=== PATIENT | female | born 1930 | race Caucasian/White ===

== ENCOUNTER → 2016-08-23 | Outpatient (REF) | payer MEDICARE ==
[~2016-08-23] MED LIST: /ESOM40CA OR; ASPI81TA83 OR; AZELASTINE; CARV12.5 OR; DIGO0.126 OR; FLUTICASONE NASAL SP; LASI20TA OR; LIPI10TA OR; MECL25TA2 OR; MULTIVIT PO; NITR0.4S SL; WARF1TAB OR
[2016-08-23 17:06] LABS: ALBUMIN 4.1 GM/DL (3.2-5.2); ALBUMIN/GLOBULIN RATIO 1.37 (1.00-1.93); BILIRUBIN,TOTAL 1.1 MG/DL (0.2-1.0); CALCIUM LEVEL 9.1 MG/DL (8.8-10.2); CREATININE FOR GFR 1.05 MG/DL (0.55-1.02); GLOMERULAR FILTRATION RATE 52.9 (>32); POTASSIUM SERUM 4.5 MEQ/L (3.5-5.1); TOTAL PROTEIN 7.1 GM/DL (6.4-8.2)
[2016-08-23 17:50] LABS: MEAN CORPUSCULAR HEMOGLOBIN 33.9 pg (27.0-33.0); MEAN CORPUSCULAR HGB CONC 32.8 g/dl (32.0-36.5); MEAN CORPUSCULAR VOLUME 103.4 fl (80.0-96.0); RED CELL DISTRIBUTION WIDTH 12.7 % (11.5-14.5); WHITE BLOOD COUNT 5.3 K/mm3 (4.0-10.0)
== END ==
LOC: M SFHCPLAZ 14:06
PROVIDERS: ATTEND Nurse Practitioner Adult Health
DX: I48.2 Chronic atrial fibrillation (principal); I10 Essential (primary) hypertension; E78.00 Pure hypercholesterolemia, unspecified; E55.9 Vitamin D deficiency, unspecified
CPT/HCPCS: 36415; 80053; 80061; 82306; 85027; G0463

== ENCOUNTER → 2016-10-03 | Outpatient (CLI) | payer MEDICARE ==
--- NOTE | 2016-10-03 15:52 | REPMRS ---
Patient History The patient states she had a clinical breast exam in 09/2016. Patient is postmenopausal and has history of other cancer at age 83. No known family history of cancer. Digital Woman Screen Mammo: October 03, 2016 - Exam #: [id number] Bilateral CC and MLO view(s) were taken. Technologist: Sheryl Glez, Technologist Prior study comparison: September 23, 2015, digital woman screen mammo performed at [facility] to [facility]. September 09, 2014, digital woman screen mammo performed at [facility] to [facility]. September 02, 2013, digital woman screen mammo performed at [facility] to [facility]. FINDINGS: There are scattered fibroglandular densities. There is a moderate amount of residual fibroglandular tissue which is fairly symmetric. There is no interval development of dominant mass, architectural distortion, or clustered microcalcification typical of malignancy. There has been no change in the appearance of the mammogram from the prior studies. ASSESSMENT: BI-RADS/ACR category 1 mammogram. Negative. Recommendation Routine screening mammogram of both breasts in 1 year (for women over age 40). This mammogram was interpreted with the aid of an FDA-approved computer-aided dectection system. Electronically Signed By: Anibal Francois MD 10/03/16 [id number]
== END ==
LOC: M WHC 14:37
PROVIDERS: ATTEND Nurse Practitioner Family
DX: Z01.419 Encounter for gynecological examination (general) (routine) without abnormal findings (principal); Z12.31 Encounter for screening mammogram for malignant neoplasm of breast; Z78.0 Asymptomatic menopausal state; Z12.12 Encounter for screening for malignant neoplasm of rectum
CPT/HCPCS: 82270; G0101; G0202

== ENCOUNTER → 2017-03-07 | Outpatient (REF) | payer MEDICARE ==
[2017-03-07 13:46] LABS: MEAN CORPUSCULAR HEMOGLOBIN 33.8 pg (27.0-33.0); MEAN CORPUSCULAR HGB CONC 32.1 g/dl (32.0-36.5); PLATELET COUNT, AUTOMATED 169 10^3/uL (150-450); RED CELL DISTRIBUTION WIDTH 13.2 % (11.5-14.5); WHITE BLOOD COUNT 5.7 10^3/uL (4.0-10.0)
[2017-03-07 13:57] LABS: MEAN CORPUSCULAR VOLUME 105.2 fl (80.0-96.0)
[2017-03-07 14:17] LABS: ALBUMIN 4.4 GM/DL (3.2-5.2); ALBUMIN/GLOBULIN RATIO 1.69 (1.00-1.93); CALCIUM LEVEL 9.2 MG/DL (8.8-10.2); CREATININE FOR GFR 0.94 MG/DL (0.55-1.02); POTASSIUM SERUM 4.6 MEQ/L (3.5-5.1)
== END ==
LOC: M SFHCPLAZ 11:44
PROVIDERS: ATTEND Nurse Practitioner Adult Health
DX: Z00.00 Encounter for general adult medical examination without abnormal findings (principal); E78.2 Mixed hyperlipidemia; E55.9 Vitamin D deficiency, unspecified; Z23 Encounter for immunization
CPT/HCPCS: 80053; 80061; 82306; 84443; 85027; 90662; G0008

== ENCOUNTER → 2017-04-15 | Outpatient (CLI) | payer MEDICARE ==
--- NOTE | 2017-04-15 12:30 | REP ---
Right shoulder series: Three views. History: Right shoulder pain. Findings: There is diffuse osteopenia. The right glenohumeral and acromioclavicular joints are normally aligned. There is moderate osteoarthritic spurring at the inferior aspect of the glenoid. Moderate inferior AC joint spurring is seen as well. Periarticular soft tissues are unremarkable. No fracture or subluxation is seen. Impression: Moderate AC joint and glenohumeral joint osteoarthritis. Diffuse osteoporosis. No acute bony abnormality seen. Signed by Jamarcus Francois MD 04/15/2017 12:32 P
--- NOTE | 2017-04-15 12:32 | REP ---
Chest x-ray: Two views. History: Cough for several weeks. Comparison: Chest x-ray February 17, 2014. Findings: There is marked cardiac enlargement again noted, unchanged from multiple prior radiographs. The right heart border particularly prominent as before. The aorta is tortuous and calcific. The lungs are symmetrically aerated and otherwise clear. The pleural angles are sharp. Left hemidiaphragm remains slightly elevated. Mild degenerative changes are seen in the thoracic spine. Impression: Moderate to marked cardiomegaly again noted. Otherwise no acute disease. Signed by Jamarcus Francois MD 04/15/2017 12:50 P
== END ==
LOC: M LRY 11:34
PROVIDERS: ATTEND Nurse Practitioner Family
DX: R05 Cough (principal); I51.7 Cardiomegaly; M19.011 Primary osteoarthritis, right shoulder; M85.811 Other specified disorders of bone density and structure, right shoulder
CPT/HCPCS: 71020; 73030; 94640; G0463

== ENCOUNTER 2017-07-06 18:40 | Emergency (ER) | payer MEDICARE ==
[2017-07-06] MEDS: FLEET ENEMA PR (21:15)
[2017-07-06] MEDS: LACTULOSE 20 GM/30 ML SYRUP UD PO (21:15)
== END 2017-07-06 23:24 | disposition home or self-care (01) ==
LOC: M ED 18:40
DX: K59.00 Constipation, unspecified (principal); I10 Essential (primary) hypertension; E78.5 Hyperlipidemia, unspecified; I48.91 Unspecified atrial fibrillation; Z79.899 Other long term (current) drug therapy; Z79.82 Long term (current) use of aspirin; Z79.01 Long term (current) use of anticoagulants
CPT/HCPCS: 99283

== ENCOUNTER → 2017-09-03 | Outpatient (REF) | payer MEDICARE ==
[2017-09-03 12:05] LABS: HEMATOCRIT 38.1 % (36.0-47.0); HEMOGLOBIN 12.3 g/dl (12.0-15.5); MEAN CORPUSCULAR HEMOGLOBIN 33.2 pg (27.0-33.0); MEAN CORPUSCULAR HGB CONC 32.3 g/dl (32.0-36.5); PLATELET COUNT, AUTOMATED 154 10^3/uL (150-450); RED CELL DISTRIBUTION WIDTH 13.4 % (11.5-14.5)
[2017-09-03 12:44] LABS: TOTAL 25(OH) VITAMIN D 39.5 NG/ML (30.0-100.0)
[2017-09-03 13:39] LABS: ALBUMIN 3.9 GM/DL (3.2-5.2); ALBUMIN/GLOBULIN RATIO 1.34 (1.00-1.93); ALKALINE PHOSPHATASE 89 U/L (45-117); ALT/SGPT 22 U/L (12-78); ANION GAP 8 MEQ/L (8-16); AST/SGOT 20 U/L (7-37); BILIRUBIN,TOTAL 0.8 MG/DL (0.2-1.0); BLOOD UREA NITROGEN 24 MG/DL (7-18); CALCIUM LEVEL 8.9 MG/DL (8.8-10.2); CARBON DIOXIDE LEVEL 26 MEQ/L (21-32); CHLORIDE LEVEL 109 MEQ/L (98-107); CHOLESTEROL LEVEL 133 MG/DL (<200); CHOLESTEROL RISK RATIO 2.111 (<5); CREATININE FOR GFR 0.99 MG/DL (0.55-1.30); GLOMERULAR FILTRATION RATE 56.4 (>32); GLUCOSE, FASTING 91 MG/DL (70-100); HDL CHOLESTEROL 63 MG/DL (>40); LDL CHOLESTEROL 51.6 MG/DL (<100); NON-HDL-C 70 MG/DL; POTASSIUM SERUM 4.6 MEQ/L (3.5-5.1); SODIUM LEVEL 143 MEQ/L (136-145); TOTAL PROTEIN 6.8 GM/DL (6.4-8.2); TRIGLYCERIDES LEVEL 92 MG/DL (<150)
== END ==
LOC: M SFHCPLAZ 10:44
DX: I10 Essential (primary) hypertension (principal); I48.2 Chronic atrial fibrillation; E78.2 Mixed hyperlipidemia; E55.9 Vitamin D deficiency, unspecified
CPT/HCPCS: 84443

== ENCOUNTER → 2018-03-07 | Outpatient (REF) | payer MEDICARE ==
[2018-03-07 14:17] LABS: ALBUMIN/GLOBULIN RATIO 1.54 (1.00-1.93); ALKALINE PHOSPHATASE 101 U/L (45-117); ALT/SGPT 23 U/L (12-78); ANION GAP 9 MEQ/L (8-16); AST/SGOT 23 U/L (7-37); BILIRUBIN,TOTAL 0.6 MG/DL (0.2-1.0); BLOOD UREA NITROGEN 21 MG/DL (7-18); CALCIUM LEVEL 8.9 MG/DL (8.8-10.2); CARBON DIOXIDE LEVEL 30 MEQ/L (21-32); CHLORIDE LEVEL 107 MEQ/L (98-107); CHOLESTEROL LEVEL 132 MG/DL (<200); CHOLESTEROL RISK RATIO 2.062 (<5); CREATININE FOR GFR 0.93 MG/DL (0.55-1.30); GLOMERULAR FILTRATION RATE > 60.0 (>32); GLUCOSE, FASTING 94 MG/DL (70-100); HDL CHOLESTEROL 64 MG/DL (>40); LDL CHOLESTEROL 47 MG/DL (<100); NON-HDL-C 68 MG/DL; POTASSIUM SERUM 4.8 MEQ/L (3.5-5.1); SODIUM LEVEL 146 MEQ/L (136-145); TOTAL PROTEIN 6.6 GM/DL (6.4-8.2); TRIGLYCERIDES LEVEL 103 MG/DL (<150)
[2018-03-07 14:19] LABS: TOTAL 25(OH) VITAMIN D 56.6 NG/ML (30.0-100.0)
== END ==
LOC: M SFHCPLAZ 11:18
DX: E78.2 Mixed hyperlipidemia (principal); I48.2 Chronic atrial fibrillation; E55.9 Vitamin D deficiency, unspecified; I10 Essential (primary) hypertension; Z79.899 Other long term (current) drug therapy; Z23 Encounter for immunization
CPT/HCPCS: 84443

== ENCOUNTER → 2018-07-18 | Outpatient (REF) | payer MEDICARE ==
[2018-07-18 17:26] LABS: HEMATOCRIT 39.8 % (36.0-47.0); HEMOGLOBIN 12.5 g/dl (12.0-15.5); MEAN CORPUSCULAR HEMOGLOBIN 33.9 pg (27.0-33.0); MEAN CORPUSCULAR HGB CONC 31.4 g/dl (32.0-36.5); MEAN CORPUSCULAR VOLUME 107.9 fl (80.0-96.0); PLATELET COUNT, AUTOMATED 150 10^3/uL (150-450); RED BLOOD COUNT 3.69 10^6/uL (4.00-5.40); WHITE BLOOD COUNT 4.7 10^3/uL (4.0-10.0)
[2018-07-18 17:41] LABS: INR 1.59; PROTHROMBIN TIME 19.2 SECONDS (12.1-14.4)
[2018-07-19 14:49] LABS: ALBUMIN 4.1 GM/DL (3.2-5.2); BILIRUBIN,TOTAL 1.1 MG/DL (0.2-1.0); CALCIUM LEVEL 8.5 MG/DL (8.8-10.2); CREATININE FOR GFR 1.15 MG/DL (0.55-1.30); GLOMERULAR FILTRATION RATE 47.4 (>32); POTASSIUM SERUM 4.4 MEQ/L (3.5-5.1); TOTAL PROTEIN 7.1 GM/DL (6.4-8.2)
== END ==
LOC: M SFHCPLAZ 13:36
PROVIDERS: ATTEND Nurse Practitioner Adult Health
DX: I48.2 Chronic atrial fibrillation (principal)

== ENCOUNTER 2018-10-25 13:42 | Inpatient (IN) | payer MEDICARE ==
[~2018-10-25] VITALS: Ht 160 cm; Wt 61.8 kg
[~2018-10-25 13:42] MED LIST changes: -/ESOM40CA OR; +NEXI1CAP3 OR
--- NOTE | 2018-10-25 14:24 | REP ---
CT STUDY OF THE BRAIN WITHOUT CONTRAST: HISTORY: Rule out CVA. FINDINGS: Digital preliminary tanner rotary drum continuous process radiograph is unremarkable. The patient is edentulous. Bone window settings demonstrate an intact bony calvarium. Vascular calcification is seen in the distal carotid arteries bilaterally. Visualized paranasal sinuses are clear. No intraorbital abnormality is appreciated. On soft tissue window settings, there is diffuse moderate cerebral atrophy. Mcnamara-white differentiation pattern is normal above below the tentorium. There is no evidence of intracranial hemorrhage. No extra-axial fluid collection is seen. No acute infarct is seen. No mass or midline shift is observed. IMPRESSION: Diffuse atrophy, vascular calcification, small vessel changes. No acute intracranial abnormality. Electronically Signed by Jamarcus Francois MD 10/25/2018 03:14 P
--- NOTE | 2018-10-25 14:44 | REP ---
Chest one-view HISTORY: Altered mental status Comparison: 04/15/2017 The lungs are clear. The cardiac silhouette is enlarged. The pulmonary vasculature is normal in appearance. Impression: Cardiomegaly. Electronically Signed by Adolfo Paz MD 10/25/2018 02:35 P
[2018-10-25] MEDS ORDERED: MECLIZINE 25 MG TABLET PO ONE (14:45)
[2018-10-25 14:51] LABS: BASO % 0.4 % (0.0-1.0); EOS # 0.1 10^3/uL (0.0-0.50); EOS % 2.2 % (0.0-3.0); HEMATOCRIT 38.4 % (36.0-47.0); HEMOGLOBIN 12.4 g/dl (12.0-15.5); LYMPH # 0.9 10^3/uL (1.5-4.5); MEAN CORPUSCULAR HEMOGLOBIN 34.8 pg (27.0-33.0); MEAN CORPUSCULAR HGB CONC 32.3 g/dl (32.0-36.5); MEAN CORPUSCULAR VOLUME 107.9 fl (80.0-96.0); MONO # 0.4 10^3/uL (0.0-0.8); MONO % 8.7 % (0.0-5.0); NEUTROPHILS # 3.5 10^3/uL (1.8-7.7); NEUTROPHILS % 70.5 % (36.0-66.0); PLATELET COUNT, AUTOMATED 144 10^3/uL (150-450); RED BLOOD COUNT 3.56 10^6/uL (4.00-5.40)
[2018-10-25 14:53] LABS: VENOUS BASE EXCESS 0.3 (-2.0-2.0); VENOUS HCO3 25.9 MEQ/L (23.0-27.0); VENOUS O2 SATURATION 83.6 % (60.0-80.0); VENOUS PARTIAL PRESSURE CO2 45.4 mmHg (38.0-50.0); VENOUS PARTIAL PRESSURE O2 53.2 mmHg (30.0-50.0); VENOUS PH 7.374 UNITS (7.330-7.430); VENOUS STANDARD HCO3 24.5 MEQ/L; VENOUS TOTAL CO2 27.3 MEQ/L (24.0-28.0)
[2018-10-25 15:14] LABS: OSMOLALITY SERUM 302 MOSM/KG (280-301)
[2018-10-25 15:39] LABS: ALBUMIN 4.1 GM/DL (3.2-5.2); ALT/SGPT 31 U/L (12-78); BILIRUBIN,DIRECT 0.2 MG/DL (0.0-0.2); BILIRUBIN,TOTAL 0.6 MG/DL (0.2-1.0); BLOOD UREA NITROGEN 21 MG/DL (7-18); CALCIUM LEVEL 8.9 MG/DL (8.8-10.2); CARBON DIOXIDE LEVEL 28 MEQ/L (21-32); CHLORIDE LEVEL 108 MEQ/L (98-107); CK-MB VALUE MASS 1.2 NG/ML (<3.6); CPK CREATINE PHOSPHOKINASE 60 U/L (26-192); CREATININE FOR GFR 1.05 MG/DL (0.55-1.30); GLOMERULAR FILTRATION RATE 52.5 (>32); GLUCOSE, FASTING 74 MG/DL (70-100); POTASSIUM SERUM 4.3 MEQ/L (3.5-5.1); SODIUM LEVEL 143 MEQ/L (136-145); TOTAL PROTEIN 7.1 GM/DL (6.4-8.2); TROPONIN I < 0.02 NG/ML (< 0.10)
[2018-10-25] MEDS ORDERED: KEFL500C17 PO (18:30)
[2018-10-25] MEDS ORDERED: MECL1CHW PO (18:30)
[2018-10-25] MEDS ORDERED: CEPHALEXIN 500 MG CAP PO ONE (18:30)
[2018-10-25] MEDS ORDERED: WARF-58 PO (19:25)
[2018-10-25] MEDS ORDERED: LIPI10TA PO (19:25)
[2018-10-25] MEDS ORDERED: AZEL1SPR3 NARES (19:25)
[2018-10-25] MEDS ORDERED: DIGO0.12 PO (19:25)
[2018-10-25] MEDS ORDERED: CARV12.5 PO (19:25)
[2018-10-25] MEDS ORDERED: MULTCAP PO (19:25)
[2018-10-25] MEDS ORDERED: CALC600C3 PO (19:25)
[2018-10-25] MEDS ORDERED: DOCU-129 PO (19:25)
[2018-10-25] MEDS ORDERED: SENO8.6T5 PO (19:25)
[2018-10-25] MEDS ORDERED: FURO20TA2 PO (19:25)
[2018-10-25] MEDS ORDERED: ACETAMINOPHEN TAB 650MG DOSE (2X325MG) PO PRN (20:30)
--- NOTE | 2018-10-25 20:51 | HPEPDOC ---
General Date of Admission 10/25/2018 Date of Service: Oct 25, 2018 Attending Physician: ASHA BOWER MD Chief Complaint The patient is a 88-year-old female admitted with a reason for visit of Dizziness X2 Days. Source: Patient Exam Limitations: No limitations Timing/Duration: Day(s) Severity: Moderate Associated Symptoms: Diaphoresis, Dizziness History of Present Illness Patient is an 88-year-old female, presenting to the emergency room on account of dizziness and weakness for 2 days. Patient has a past medical history significant for hypertension, chronic atrial fibrillation, diastolic congestive heart failure, chronic kidney disease. Patient was lying in bed at onset of symptoms. Describes as waxing and waning usually lasting a few seconds. Afterwards usually feels clammy. She denied any chest pain or shortness of breath with symptoms. She denied any palpitations or any cardiac symptoms. Did report clamminess after each episode. On admit ED evaluation with Chest x-ray was negative for acute coronary pulmonary process, CT brain was negative for acute intracranial process. Chemistry was abnormal for BUN of 21. Urinalysis was abnormal for 3+ l eukoesterase, elevated white blood count Home Medications Scheduled Atorvastatin Calcium (Lipitor) 10 Mg Tablet, 10 MG PO QHS, (Reported) Azelastine HCl (Azelastine HCl) 0.1% [place].pump, 2 SPRAY NARES BID, (Reported) Calcium Carbonate/Vitamin D3 (Calcium 600+D Softgel) 1 Each Capsule, 1 CAP PO BID, (Reported) Carvedilol (Carvedilol) 12.5 Mg Tablet, 12.5 MG PO BID, (Reported) Digoxin (Digoxin) 125 Mcg Tablet, 62.5 MCG PO DAILY, (Reported) Docusate Sodium (Stool Softener) 100 Mg Capsule, 100 MG PO BID, (Reported) Furosemide (Furosemide) 20 Mg Tablet, 20 MG PO 3XW, (Reported) TRIES TO TAKE M, W, F Multivitamin (Multivitamins) 1 Each Capsule, 1 CAP PO DAILY, (Reported) Sennosides (Senokot) 8.6 Mg Tablet, 8.6 MG PO QHS, (Reported) Warfarin Sodium (Warfarin Sodium) 3 Mg Tablet, 3 MG PO DAILY, (Reported) Allergies Coded Allergies: No Known Allergies (Verified , 07/06/17) Past Medical History Medical History Hypertension Hyperlipidemia Diastolic congestive heart failure Chronic atrial fibrillation GERD Chronic kidney disease stage III Cervical stenosis Surgical History Colonoscopy Bilateral cataract surgery Ankle fixation D&C Family History Father: Diabetes mellitus Mother: Diabetes mellitus Social History Denies tobacco, alcohol, polysubstance abuse. A-FIB/CHADSVASC A-FIB History Current/History of A-Fib/PAF?: Yes Current PO Anticoag Therapy: Yes Treatment Treatment ordered: Warfarin Review of Systems Other systems A 10 point pertinent review of systems was completed, negative except as stated in the history of presenting illness. Physical Examination Other physical findings GENERAL: NAD SKIN : Warm, dry intact HEENT: Atraumatic, normocephalic, PERRL, moist mucous membrane CARDIOVASCULAR: irregular rate and rhythm, S1S2, no JVD, no edema, distal pulses + and palpable RESP: CTAB, no accessory muscle use noted ABDOMEN: BS+ non distended non tender MS: no joint deformities NEURO: Alert and oriented x 3, CN2-12 grossly intact PSYCH: no anxiety or agitation, appropriate mood and affect. Vital Signs Vital Signs Date Time Temp Pulse Resp B/P (MAP) Pulse Ox O2 Delivery O2 Flow Rate FiO2 10/25/18 19:01 98.0 77 18 177/94 (121) 96 Room Air Laboratory Data Labs 24H Laboratory Tests 2 10/25/18 14:19: Immature Granulocyte % (Auto) 0.2, White Blood Count 5.0, Red Blood Count 3.56L, Hemoglobin 12.4, Hematocrit 38.4, Mean Corpuscular Volume 107.9H, Mean Corpuscular Hemoglobin 34.8H, Mean Corpuscular Hemoglobin Concent 32.3, Red Cell Distribution Width 13.0, Platelet Count 144L, Neutrophils (%) (Auto) 70.5H, Lymphocytes (%) (Auto) 18.0L, Monocytes (%) (Auto) 8.7H, Eosinophils (%) (Auto) 2.2, Basophils (%) (Auto) 0.4, Neutrophils # (Auto) 3.5, Lymphocytes # (Auto) 0.9L, Monocytes # (Auto) 0.4, Eosinophils # (Auto) 0.1, Basophils # (Auto) 0.0, Nucleated Red Blood Cells % (auto) 0.0, Urine Color YELLOW, Urine Appearance CLEAR, Urine pH 6.0, Urine Specific [place] 1.014, Urine Protein NEGATIVE, Urine Glucose (UA) NEGATIVE, Urine Ketones NEGATIVE, Urine Blood NEGATIVE, Urine Nitrite NEGATIVE, Urine Bilirubin NEGATIVE, Urine Urobilinogen 0.2, Urine Leukocyte Esterase 3+H, Urine WBC (Auto) 32H, Urine RBC (Auto) 7H, Urine Hyaline Casts (Auto) 0, Urine Bacteria (Auto) NEGATIVE, Urine Squamous Epithelial Cells 1, Urine Mucus (Auto) SMALL, Urine Sperm (Auto) , Blood Gas Bicarbonate Standard 24.5, Venous Blood pH 7.374, Venous Blood Partial Pressure CO2 45.4, Venous Blood Partial Pressure O2 53.2H, Venous Blood Total Carbon Dioxide 27.3, Venous Blood HCO3 25.9, Venous Blood Oxygen Saturation 83.6H, Venous Blood Base Excess 0.3, Anion Gap 7L, Glomerular Filtration Rate 52.5, Osmolality 302H, Lactic Acid Level 1.9, Calcium Level 8.9, Aspartate Amino Transf (AST/SGOT) 32, Alanine Aminotransferase (ALT/SGPT) 31, Alkaline Phosphatase 109, Total Bilirubin 0.6, Direct Bilirubin 0.2, Total Creatine Kinase 60, Creatine Kinase MB 1.2, Creatine Kinase MB Relative Index 2.00, Troponin I < 0.02, Total Protein 7.1, Albumin 4.1, Albumin/Globulin Ratio 1.37, Thyroid Stimulating Hormone (TSH) 1.700 10/25/18 14:56: POC Glucose (Misc Panel) 76, POC Sodium (Misc Panel) 143, POC Potassium (Misc Panel) 4.1, POC Chloride (Misc Panel) 104, POC Total CO2 (Misc Panel) 27.0, POC Blood Urea Nitrogen (Misc Panel 21, POC Ionized Calcium (Misc Panel) 4.9, POC Creatinine (Misc Panel) 1.0, POC Hematocrit (Misc Panel) 38.0 CBC/BMP Laboratory Tests 10/25/18 14:19 Red Blood Count 3.56 L, Mean Corpuscular Volume 107.9 H, Mean Corpuscular Hemoglobin 34.8 H, Mean Corpuscular Hemoglobin Concent 32.3, Red Cell Distribution Width 13.0, Neutrophils (%) (Auto) 70.5 H, Lymphocytes (%) (Auto) 18.0 L, Monocytes (%) (Auto) 8.7 H, Eosinophils (%) (Auto) 2.2, Basophils (%) (Auto) 0.4, Neutrophils # (Auto) 3.5, Lymphocytes # (Auto) 0.9 L, Monocytes # (Auto) 0.4, Eosinophils # (Auto) 0.1, Basophils # (Auto) 0.0 Microbiology Microbiology 10/25/18 Urine Culture, Received Pending Assessment/Plan Urinary tract infection -Presenting with dizziness and weakness -Antibiotic therapy with ceftriaxone -Follow urine culture findings and adjust management as indicated Presyncope -Ultrasound of carotids to evaluate for vascular cause -Fall precautions Chronic atrial fibrillation -Rate controlled -Continue digoxin -Continue anticoagulation therapy Hypertension -Presenting systolic blood pressure was low, possibly due to dehydration -Gentle rehydration therapy -Continue home medications for control of blood pressure -Monitoring per unit protocol -.Target systolic blood pressure less than 150 Chronic kidney disease -Avoid nephrotoxic medications -Monitor renal function -Avoid hypotension and dehydration -Hold Lasix DVT prophylaxis -Currently on warfarin for atrial fibrillation. Continue -. Monitor INR Plan / VTE VTE Prophylaxis Ordered?: Yes PRINCESS MALONEYP Oct 25, 2018 20:51
[2018-10-25] MEDS ORDERED: CARVedilol 12.5 MG TAB PO SCH (21:00)
[2018-10-25] MEDS: NS 1,000 ML IV SCH (21:03)
[2018-10-25 21:42] LABS: INR 2.51; PROTHROMBIN TIME 27.6 SECONDS (12.1-14.4)
[2018-10-25 22:10] VITALS: BP 136/67
--- NOTE | 2018-10-25 22:11 | REPVR ---
EXAM: US Duplex Bilateral Extracranial Arteries EXAM DATE/TIME: 10/25/2018 9:07 PM CLINICAL HISTORY: 88 years old, female; Signs and symptoms; Dizziness TECHNIQUE: Imaging protocol: Real-time Duplex ultrasound scan of the Bilateral carotid and vertebral arteries combining carl scale, color Doppler and spectral waveform analysis. COMPARISON: No relevant prior studies available. FINDINGS: Right common carotid artery: Unremarkable. No occlusion or stenosis. Waveforms are normal. Right internal carotid artery: Tortuous. Mild plaque at the right carotid bulb. No occlusion or stenosis. Waveforms are normal. Right ICA/CCA ratio: Within normal limits. Right external carotid artery: No stenosis in the origin. Right vertebral artery: Unremarkable. Antegrade flow Left common carotid artery: Unremarkable. No occlusion or stenosis. Waveforms are normal. Left internal carotid artery: Tortuous. No occlusion or stenosis. Waveforms are normal. Left ICA/CCA ratio: Within normal limits. Left external carotid artery: Not seen. Left vertebral artery: Unremarkable. Antegrade flow. IMPRESSION: No hemodynamically significant stenosis or occlusion. Left external carotid artery is not seen. If clinically concerned further evaluation CTA examination is recommended. COMMENT: Carotid Stenosis Reference using SRU criteria: Mild: less than 50% stenosis. ICA PSV is less than 125 cm/second and plaque or intimal thickening is visible. Moderate: 50-69% stenosis. ICA PSV is 125 to 230 cm/second and plaque is visible. Severe: 70-94% stenosis. ICA PSV is more than 230 cm/second and visible plaque and lumen narrowing are seen. Near occlusion: 95-99% stenosis. ICA PSV is variable and significant plaque and luminal narrowing are seen. Occluded: 100% stenosis. No flow identified. Electronically signed by: Mitzy Salmeron On 10/25/2018 22:11:14 PM
[2018-10-25] MEDS: SENOKOT S TAB PO SCH (22:34)
[2018-10-25] MEDS: ATORVASTATIN 10 MG TAB PO SCH (22:34)
[2018-10-26 02:00] VITALS: BP 121/57
--- NOTE | 2018-10-26 05:47 | ECGEPIP ---
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
[2018-10-26 06:00] VITALS: BP 112/63
[2018-10-26 06:36] LABS: HEMOGLOBIN 11.6 g/dl (12.0-15.5); MEAN CORPUSCULAR HEMOGLOBIN 34.6 pg (27.0-33.0); MEAN CORPUSCULAR HGB CONC 32.2 g/dl (32.0-36.5); MEAN CORPUSCULAR VOLUME 107.5 fl (80.0-96.0); PLATELET COUNT, AUTOMATED 129 10^3/uL (150-450); RED BLOOD COUNT 3.35 10^6/uL (4.00-5.40); WHITE BLOOD COUNT 3.9 10^3/uL (4.0-10.0)
[2018-10-26 06:44] LABS: INR 2.36; PROTHROMBIN TIME 26.3 SECONDS (12.1-14.4)
[2018-10-26 06:55] LABS: ALBUMIN 3.6 GM/DL (3.2-5.2); BILIRUBIN,TOTAL 0.8 MG/DL (0.2-1.0); CALCIUM LEVEL 8.9 MG/DL (8.8-10.2); CREATININE FOR GFR 0.97 MG/DL (0.55-1.30); GLOMERULAR FILTRATION RATE 57.6 (>32); MAGNESIUM LEVEL 2.1 MG/DL (1.8-2.4); POTASSIUM SERUM 4.1 MEQ/L (3.5-5.1); TOTAL PROTEIN 6.4 GM/DL (6.4-8.2)
[2018-10-26] MEDS ORDERED: DIGOXIN 0.0625MG PER 1/2TABLET PO SCH (09:00)
[2018-10-26] MEDS ORDERED: ENOXAPARIN 40 MG/0.4 ML SYRINGE (J1650) SC SCH (09:00)
[2018-10-26 10:00] VITALS: BP 111/55
--- NOTE | 2018-10-26 10:22 | IPNPDOC ---
Subjective Date Seen The patient was seen on 10/26/18. Subjective Chief Complaint/HPI Patient had a long pause and also remained bradycardic overnight, patient was to go home and offers no other complaints General: Denies: ROS Unobtainable, Chills, Night Sweats, Fatigue, Malaise, Normal Appetite, Other Symptoms Constitutional: Denies: Chills, Fever, Malaise, Night Sweats, Weakness, Fa tigue, Weight Loss, Lethargy, Other Eyes: Denies: Pain, Vision change, Conjunctivae inflammation, Eyelid inflammation, Redness, Other ENT: Denies: Head Aches, Ear Pain, Dysphagia, Sinus Congestion, Post Nasal Drip, Sore Throat, Epistaxis, Other Symptoms Skin: Denies: Rash, Lesions, Jaundice, Bruising, Itching, Dry, Breakdown, Nail Changes, Other Pulmonary: Denies: Dyspnea, Cough, Pleuritic Chest Pain, Other Symptoms Cardiovascular: Denies: Chest Pain, Palpitations, Orthopnea, Paroxysmal Noc. Dyspnea, Edema, Lt Headedness, Other Symptoms Gastrointestinal: Denies: Nausea, Vomiting, Abdominal Pain, Diarrhea, Constipation, Melena, Hematochezia, Other Symptoms Musculoskeletal: Denies: Neck Pain, Back Pain, Shoulder Pain, Arm Pain, Hand Pain, Leg Pain, Foot Pain, Joint Pain, Muscle Pain, Spasms, Other Symptoms Neurological: Denies: Weakness, Numbness, Incoordination, Change in speech, Confusion, Seizures, Other Symptoms Psych: Denies: Mood Normal, Anxiety, Depression, Memory Issues, Thoughts of Self Harm, Anger, Thoughts of Harming Other, Other Psych Objective Physical Examination General Exam: Positive: Alert, Cooperative Eye Exam: Positive: PERRLA, Conjunctiva & lids normal ENT Exam: Positive: Atraumatic, Mucous membr. moist/pink Neck Exam: Positive: Supple Chest Exam: Positive: Clear to auscultation, Normal air movement Heart Exam: Positive: Irregular Rhythm, Normal S1, Normal S2 Abdomen Exam: Positive: Normal bowel sounds, Soft Skin Exam: Positive: Nl turgor and temperature Neuro Exam: Positive: Normal Gait Psych Exam: Positive: Mental status NL, Mood NL, Oriented x 3 Assessment /Plan Problems (1) UTI (urinary tract infection) Status: Acute (2) Pre-syncope Status: Acute Plan/VTE VTE Prophylaxis Ordered?: Yes Plan Urinary tract infection -Presenting with dizziness and weakness -Antibiotic therapy with ceftriaxone -Follow urine culture findings and adjust management as indicated Presyncope -Ultrasound of carotids to evaluate for vascular cause -8 echocardiogram -Fall precautions Chronic atrial fibrillation -Rate bradycardic overnight -Hold digoxin and Coreg, dig. Level has been ordered, -Follow a.m. labs including magnesium level -Continue anticoagulation therapy Hypertension -Presenting systolic blood pressure was low, possibly due to dehydration -Gentle rehydration therapy -Continue home medications for control of blood pressure -Monitoring per unit protocol -.Target systolic blood pressure less than 150 Chronic kidney disease -Avoid nephrotoxic medications -Monitor renal function -Avoid hypotension and dehydration -Hold Lasix DVT prophylaxis -Currently on warfarin for atrial fibrillation. Continue -. Monitor INR VS, I&O, 24H, Fishbone Vital Signs/I&O Vital Signs Date Time Temp Pulse Resp B/P (MAP) Pulse Ox O2 Delivery O2 Flow Rate FiO2 10/26/18 06:00 97.7 64 19 112/63 (79) 97 10/25/18 21:45 Room Air I&O- Last 24 Hours up to 6 AM 10/26/18 06:00 Intake Total 210 ml Balance 210 ml Laboratory Data 24H LABS Laboratory Tests 2 10/25/18 14:19: Immature Granulocyte % (Auto) 0.2, White Blood Count 5.0, Red Blood Count 3.56L, Hemoglobin 12.4, Hematocrit 38.4, Mean Corpuscular Volume 107.9H, Mean Corpuscular Hemoglobin 34.8H, Mean Corpuscular Hemoglobin Concent 32.3, Red Cell Distribution Width 13.0, Platelet Count 144L, Neutrophils (%) (Auto) 70.5H, Lymphocytes (%) (Auto) 18.0L, Monocytes (%) (Auto) 8.7H, Eosinophils (%) (Auto) 2.2, Basophils (%) (Auto) 0.4, Neutrophils # (Auto) 3.5, Lymphocytes # (Auto) 0.9L, Monocytes # (Auto) 0.4, Eosinophils # (Auto) 0.1, Basophils # (Auto) 0.0, Nucleated Red Blood Cells % (auto) 0.0, Urine Color YELLOW, Urine Appearance CLEAR, Urine pH 6.0, Urine Specific [place] 1.014, Urine Protein NEGATIVE, Urine Glucose (UA) NEGATIVE, Urine Ketones NEGATIVE, Urine Blood NEGATIVE, Urine Nitrite NEGATIVE, Urine Bilirubin NEGATIVE, Urine Urobilinogen 0.2, Urine Leukocyte Esterase 3+H, Urine WBC (Auto) 32H, Urine RBC (Auto) 7H, Urine Hyaline Casts (Auto) 0, Urine Bacteria (Auto) NEGATIVE, Urine Squamous Epithelial Cells 1, Urine Mucus (Auto) SMALL, Urine Sperm (Auto) , Blood Gas Bicarbonate Standard 24.5, Venous Blood pH 7.374, Venous Blood Partial Pressure CO2 45.4, Venous Blood Partial Pressure O2 53.2H, Venous Blood Total Carbon Dioxide 27.3, Venous Blood HCO3 25.9, Venous Blood Oxygen Saturation 83.6H, Venous Blood Base Excess 0.3, Anion Gap 7L, Glomerular Filtration Rate 52.5, Osmolality 302H, Lactic Acid Level 1.9, Calcium Level 8.9, Aspartate Amino Transf (AST/SGOT) 32, Alanine Aminotransferase (ALT/SGPT) 31, Alkaline Phosphatase 109, Total Bilirubin 0.6, Direct Bilirubin 0.2, Total Creatine Kinase 60, Creatine Kinase MB 1.2, Creatine Kinase MB Relative Index 2.00, Troponin I < 0.02, Total Protein 7.1, Albumin 4.1, Albumin/Globulin Ratio 1.37, Thyroid Stimulating Hormone (TSH) 1.700 10/25/18 14:56: POC Glucose (Misc Panel) 76, POC Sodium (Misc Panel) 143, POC Potassium (Misc Panel) 4.1, POC Chloride (Misc Panel) 104, POC Total CO2 (Misc Panel) 27.0, POC Blood Urea Nitrogen (Misc Panel 21, POC Ionized Calcium (Misc Panel) 4.9, POC Creatinine (Misc Panel) 1.0, POC Hematocrit (Misc Panel) 38.0 10/25/18 21:20: Prothrombin Time 27.6H, Prothromb Time International Ratio 2.51 10/26/18 05:55: Nucleated Red Blood Cells % (auto) 0.0, Anion Gap 5L, Glomerular Filtration Rate 57.6, Calcium Level 8.9, Aspartate Amino Transf (AST/SGOT) 29, Alanine Aminotransferase (ALT/SGPT) 30, Alkaline Phosphatase 96, Total Bilirubin 0.8, Total Protein 6.4, Albumin 3.6, Albumin/Globulin Ratio 1.29, Prothrombin Time 26.3H, Prothromb Time International Ratio 2.36, Blood Urea Nitrogen 18, Creatinine 0.97, Sodium Level 143, Potassium Level 4.1, Chloride Level 109H, Carbon Dioxide Level 29, Magnesium Level 2.1 CBC/BMP Laboratory Tests 10/25/18 14:19 Red Blood Count 3.56 L, Mean Corpuscular Volume 107.9 H, Mean Corpuscular Hemoglobin 34.8 H, Mean Corpuscular Hemoglobin Concent 32.3, Red Cell Distribution Width 13.0, Neutrophils (%) (Auto) 70.5 H, Lymphocytes (%) (Auto) 18.0 L, Monocytes (%) (Auto) 8.7 H, Eosinophils (%) (Auto) 2.2, Basophils (%) (Auto) 0.4, Neutrophils # (Auto) 3.5, Lymphocytes # (Auto) 0.9 L, Monocytes # (Auto) 0.4, Eosinophils # (Auto) 0.1, Basophils # (Auto) 0.0 10/26/18 05:55 Red Blood Count 3.35 L, Mean Corpuscular Volume 107.5 H, Mean Corpuscular Hemoglobin 34.6 H, Mean Corpuscular Hemoglobin Concent 32.2, Red Cell Distribution Width 13.1, Calcium Level 8.9, Aspartate Amino Transf (AST/SGOT) 29, Alanine Aminotransferase (ALT/SGPT) 30, Alkaline Phosphatase 96, Total Bilirubin 0.8, Total Protein 6.4, Albumin 3.6 Microbiology Microbiology 10/25/18 Urine Culture, Received Pending YASMINE ENRIQUE MD Oct 26, 2018 10:21
[2018-10-26 10:23] LABS: DIGOXIN LEVEL 0.5 NG/ML (0.5-2.0)
[2018-10-26] MEDS: MULTIVITAMINS/MINERALS THERAP 1 TAB PO SCH (10:38)
[2018-10-26] MEDS: cefTRIAXone SOD 1 GM in D5W MINI-BAG PLUS 50 ML IV SCH (10:38)
[2018-10-26] MEDS: DOCUSATE SODIUM 100 MG CAP PO SCH (10:38)
[2018-10-26 14:00] VITALS: BP 109/57
[2018-10-26] MEDS: WARFARIN SOD 3 MG TAB PO SCH (17:05)
[2018-10-26] MEDS: NS 1,000 ML IV SCH (17:06)
[2018-10-26 18:00] VITALS: BP 134/70
[2018-10-26] MEDS: ATORVASTATIN 10 MG TAB PO SCH (19:21)
[2018-10-26] MEDS: SENOKOT S TAB PO SCH (19:21)
[2018-10-26 22:00] VITALS: BP 130/70
[2018-10-27 02:00] VITALS: BP 122/58
[2018-10-27 06:00] VITALS: BP 134/72
[2018-10-27 06:34] LABS: BASO % 0.6 % (0.0-1.0); EOS # 0.2 10^3/uL (0.0-0.50); EOS % 3.4 % (0.0-3.0); HEMATOCRIT 36.5 % (36.0-47.0); HEMOGLOBIN 11.9 g/dl (12.0-15.5); LYMPH # 1.1 10^3/uL (1.5-4.5); LYMPH % 22.2 % (24.0-44.0); MEAN CORPUSCULAR HEMOGLOBIN 34.9 pg (27.0-33.0); MEAN CORPUSCULAR HGB CONC 32.6 g/dl (32.0-36.5); MONO # 0.5 10^3/uL (0.0-0.8); MONO % 10.3 % (0.0-5.0); NEUTROPHILS # 3.1 10^3/uL (1.8-7.7); NEUTROPHILS % 63.1 % (36.0-66.0); PLATELET COUNT, AUTOMATED 128 10^3/uL (150-450); RED BLOOD COUNT 3.41 10^6/uL (4.00-5.40)
[2018-10-27 06:56] LABS: ALBUMIN 3.4 GM/DL (3.2-5.2); BILIRUBIN,TOTAL 0.8 MG/DL (0.2-1.0); CALCIUM LEVEL 8.9 MG/DL (8.8-10.2); CREATININE FOR GFR 1.03 MG/DL (0.55-1.30); GLOMERULAR FILTRATION RATE 53.7 (>32); MAGNESIUM LEVEL 2.1 MG/DL (1.8-2.4); POTASSIUM SERUM 4.2 MEQ/L (3.5-5.1); TOTAL PROTEIN 6.4 GM/DL (6.4-8.2)
[2018-10-27 07:02] LABS: INR 2.07; PROTHROMBIN TIME 23.7 SECONDS (12.1-14.4)
[2018-10-27] MEDS: MULTIVITAMINS/MINERALS THERAP 1 TAB PO SCH (07:55)
[2018-10-27] MEDS: DOCUSATE SODIUM 100 MG CAP PO SCH (07:55)
[2018-10-27] MEDS: cefTRIAXone SOD 1 GM in D5W MINI-BAG PLUS 50 ML IV SCH (07:56)
[2018-10-27 10:00] VITALS: BP 163/84
--- NOTE | 2018-10-27 11:32 | ECHO ---
DATE OF PROCEDURE: 10/26/2018 AGE: 88 GENDER: Female. Height 63 inches. Weight 136 pounds. Body surface area 1.64 meters squared. LOCATION: Inpatient, [address] [place] [address] room 4212. REFERRING PHYSICIAN: Dr. Cotto INDICATIONS: Syncope. MEASUREMENTS 2-D measurements: RV 4.2 cm LV 4.0 cm Septum 1.2 cm Posterior wall 1.1 cm Aortic root 3.1 cm LA 4.7 cm LVEF 75% DOPPLER MEASUREMENTS: AV 1.1 meters per second LVOT 0.6 meters per second LVOT diameter 2.1 cm MV-E: 102 Early mitral deceleration time 162 milliseconds E prime 7.2, 80 / E/E prime ratio 14.2 TCWP 17.2 mmHg PV 0.8 meters per second Pulmonary artery acceleration time 79 milliseconds RVSP 55 - 60 mmHg IVC 3.1 cm COMMENT: Underlying atrial fibrillation with controlled ventricular response. No intraventricular conduction disturbance. M-mode and two-dimensional echocardiography was performed with pulsed, continuous wave, color flow and tissue Doppler studies. Borderline concentric left ventricle hypertrophy with hyperkinetic wall motion. Prominently dilated left atrium with Doppler estimated mean left atrial pressure at least mildly increased. Mildly dilated right ventricle with normal wall motion and Doppler evidence of at least moderately severe to severe pulmonary hypertension. Grossly dilated right atrium and prominently dilated inferior vena cava with reduced respiratory collapse in keeping with significantly elevated central venous pressure / right heart failure. Mild aortic valvular sclerosis without stenosis and very mild insufficiency. Normal aortic root size. Mitral annular calcification without inflow tract obstruction but moderately severe insufficiency. Normal appearing tricuspid valve with severe tricuspid insufficiency. No apparent intracardiac mass or pericardial effusion. Thank you, Darwin Peng MD MERGED WITH [facility]
[2018-10-27] MEDS: NS 1,000 ML IV SCH (11:55)
[2018-10-27 14:00] VITALS: BP 127/72
[2018-10-27] MEDS: WARFARIN SOD 3 MG TAB PO SCH (16:28)
[2018-10-27 18:00] VITALS: BP 116/74
[2018-10-27] MEDS: ATORVASTATIN 10 MG TAB PO SCH (20:01)
[2018-10-27] MEDS: SENOKOT S TAB PO SCH (20:01)
--- NOTE | 2018-10-27 20:09 | IPNPDOC ---
Text Note Date of Service The patient was seen on 10/27/18. NOTE Pt was seen and examined at bedside. Pt denies any syncope or palpitations. Denies any chest pain. Recently adjusted meds due to bradycardia. Will cont to monitor on tele. No events recorded in Tele. HR 40-50 recorded in multiple occasions. PHE: General Exam: Positive: Alert, Cooperative Eye Exam: Positive: PERRLA, Conjunctiva & lids normal ENT Exam: Positive: Atraumatic, Mucous membr. moist/pink Neck Exam: Positive: Supple Chest Exam: Positive: Clear to auscultation, Normal air movement Heart Exam: Positive: Irregular Rhythm, Normal S1, Normal S2 Abdomen Exam: Positive: Normal bowel sounds, Soft Skin Exam: Positive: Nl turgor and temperature Neuro Exam: Positive: Normal Gait Psych Exam: Positive: Mental status NL, Mood NL, Oriented x 3 Vital Signs Date Time Temp Pulse Resp B/P (MAP) Pulse Ox O2 Delivery O2 Flow Rate FiO2 10/28/18 02:00 97.2 71 16 137/78 (97) 98 10/27/18 22:00 98.0 67 16 137/79 (98) 98 10/27/18 18:00 98.9 70 16 116/74 (88) 96 10/27/18 14:00 97.6 72 18 127/72 (90) 98 10/27/18 10:00 96.9 68 18 163/84 (110) 97 10/27/18 06:00 98.6 55 15 134/72 (92) 98 Intake & Output 10/28/18 06:00 Intake Total 1520 ml Balance 1520 ml Laboratory Tests 10/27/18 06:04: White Blood Count 5.0, Red Blood Count 3.41L, Hemoglobin 11.9L, Hematocrit 36.5, Mean Corpuscular Volume 107.0H, Mean Corpuscular Hemoglobin 34.9H, Mean Corpuscular Hemoglobin Concent 32.6, Red Cell Distribution Width 13.1, Platelet Count 128L, Neutrophils (%) (Auto) 63.1, Lymphocytes (%) (Auto) 22.2L, Monocytes (%) (Auto) 10.3H, Eosinophils (%) (Auto) 3.4H, Basophils (%) (Auto) 0.6, Neutrophils # (Auto) 3.1, Lymphocytes # (Auto) 1.1L, Monocytes # (Auto) 0.5, Eosinophils # (Auto) 0.2, Basophils # (Auto) 0.0, Immature Granulocyte % (Auto) 0.4, Nucleated Red Blood Cells % (auto) 0.0, Prothrombin Time 23.7H, Prothromb Time International Ratio 2.07, Blood Urea Nitrogen 19H, Creatinine 1.03, Sodium Level 143, Potassium Level 4.2, Chloride Level 111H, Carbon Dioxide Level 28, Calcium Level 8.9, Aspartate Amino Transf (AST/SGOT) 22, Alanine Phillip otransferase (ALT/SGPT) 23, Alkaline Phosphatase 97, Total Bilirubin 0.8, Total Protein 6.4, Albumin 3.4, Anion Gap 4L, Glomerular Filtration Rate 53.7, Fasting Glucose 94, Magnesium Level 2.1, Albumin/Globulin Ratio 1.13 Microbiology 10/25/18 Urine Culture - Final, Complete Streptococcus Sanguinis Current Medications Medications (Trade) Dose Ordered Sig/Rachell Route PRN Reason Start Time Stop Time Status Last Admin Dose Admin Atorvastatin Calcium (Lipitor) 10 mg QHS PO 10/25/18 21:00 10/27/18 20:01 10 MG Ceftriaxone Sodium 1 gm/ Dextrose 50 ml @ 100 mls/hr DAILY IV 10/26/18 09:00 10/27/18 07:56 100 MLS/HR Docusate Sodium (Colace) 200 mg DAILY PO 10/26/18 09:00 10/27/18 07:55 200 MG Multivitamins (Theragram-M) 1 tab DAILY PO 10/26/18 09:00 10/27/18 07:55 1 TAB Senna/Docusate Sodium (Senokot S) 2 tab QHS PO 10/25/18 21:00 10/27/18 20:01 2 TAB Sodium Chloride 1,000 ml @ 50 mls/hr Q20H IV 10/25/18 21:00 10/27/18 11:55 50 MLS/HR Warfarin Sodium (Coumadin) 3 mg DAILY@1700 PO 10/26/18 17:00 10/27/18 16:28 3 MG Plan Continue current management: Urinary tract infection -Presenting with dizziness and weakness -Antibiotic therapy with ceftriaxone -Follow urine culture findings and adjust management as indicated Presyncope -Ultrasound of carotids to evaluate for vascular cause -8 echocardiogram -Fall precautions Chronic atrial fibrillation -Rate bradycardic overnight -Hold digoxin and Coreg, dig. Level 0.5 -Continue anticoagulation therapy Hypertension -Presenting systolic blood pressure was low, possibly due to dehydration -Gentle rehydration therapy -Continue home medications for control of blood pressure -Monitoring per unit protocol -.Target systolic blood pressure less than 150 Chronic kidney disease -Avoid nephrotoxic medications -Monitor renal function -Avoid hypotension and dehydration -Hold Lasix DVT prophylaxis -Currently on warfarin for atrial fibrillation. Continue -. Monitor INR VS,Fishbone, I+O VS, Fishbone, I+O Laboratory Tests 10/27/18 06:04 Red Blood Count 3.41 L, Mean Corpuscular Volume 107.0 H, Mean Corpuscular Hemoglobin 34.9 H, Mean Corpuscular Hemoglobin Concent 32.6, Red Cell Distribution Width 13.1, Neutrophils (%) (Auto) 63.1, Lymphocytes (%) (Auto) 22.2 L, Monocytes (%) (Auto) 10.3 H, Eosinophils (%) (Auto) 3.4 H, Basophils (%) (Auto) 0.6, Neutrophils # (Auto) 3.1, Lymphocytes # (Auto) 1.1 L, Monocytes # (Auto) 0.5, Eosinophils # (Auto) 0.2, Basophils # (Auto) 0.0, Calcium Level 8.9, Aspartate Amino Transf (AST/SGOT) 22, Alanine Aminotransferase (ALT/SGPT) 23, Alkaline Phosphatase 97, Total Bilirubin 0.8, Total Protein 6.4, Albumin 3.4 Vital Signs Date Time Temp Pulse Resp B/P (MAP) Pulse Ox O2 Delivery O2 Flow Rate FiO2 10/27/18 18:00 98.9 70 16 116/74 (88) 96 10/25/18 21:45 Room Air I&O- Last 24 Hours up to 6 AM 10/27/18 06:00 Intake Total 1910 ml Balance 1910 ml NEREIDA MOISE MD Oct 27, 2018 20:09
[2018-10-27 22:00] VITALS: BP 137/79
[2018-10-28] VITALS (7 sets, daily range): BP systolic 135–168; BP diastolic 70–90
[2018-10-28 06:22] LABS: HEMATOCRIT 36.7 % (36.0-47.0); HEMOGLOBIN 11.9 g/dl (12.0-15.5); MEAN CORPUSCULAR HEMOGLOBIN 34.6 pg (27.0-33.0); MEAN CORPUSCULAR HGB CONC 32.4 g/dl (32.0-36.5); MEAN CORPUSCULAR VOLUME 106.7 fl (80.0-96.0); PLATELET COUNT, AUTOMATED 128 10^3/uL (150-450); RED BLOOD COUNT 3.44 10^6/uL (4.00-5.40); WHITE BLOOD COUNT 4.9 10^3/uL (4.0-10.0)
[2018-10-28 06:32] LABS: INR 2.04; PROTHROMBIN TIME 23.4 SECONDS (12.1-14.4)
[2018-10-28] MEDS: NS 1,000 ML IV SCH (06:37)
[2018-10-28] MEDS: DOCUSATE SODIUM 100 MG CAP PO SCH (09:00)
[2018-10-28] MEDS: cefTRIAXone SOD 1 GM in D5W MINI-BAG PLUS 50 ML IV SCH (09:12)
[2018-10-28] MEDS: MULTIVITAMINS/MINERALS THERAP 1 TAB PO SCH (09:12)
[2018-10-28] MEDS: DIGOXIN 0.125 MG TAB PO SCH (12:57)
[2018-10-28] MEDS: CARVedilol 6.25 MG TAB PO SCH ×2 (12:57→20:36)
[2018-10-28] MEDS: WARFARIN SOD 3 MG TAB PO SCH (17:50)
--- NOTE | 2018-10-28 19:19 | IPNPDOC ---
Date Seen The patient was seen on 10/28/18. Progress Note SUBJECTIVE: Patient reported feeling well today and denies any complaints. Has had noted episode of bradycardia HR 40s with pauses over the weekend but so far appear asymptomatic and HR had been 60-70s since. Placed back on telemetry. Coreg dose reduced. Discussed with Dr. Peng. OBJECTIVE PHYSICAL EXAMINATION: VITAL SIGNS: Please see below. General: No acute distress, Alert Eyes: Normal sclera, EOMI, KIM HENT: Atraumatic, neck supple, moist mucous membranes Cardiovascular: Normal rate, normal rhythm. No murmurs appreciated. Pulmonary: Clear to auscultation b/l, no wheezing GI: Soft, nontender, nondistended Skin: Warm and dry Neuro: CN grossly intact. No focal deficits. Strengths equal b/l. Psych: oriented x 3 LABORATORY DATA, IMAGING STUDIES, MICROBIOLOGY: Please see below. DVT prophylaxis ordered?: On warfarin ASSESSMENT AND PLAN: 1. UTI - dizziness and urinary symptoms appeared to have resolved. - on Rocephin. - Urine culture showed strep sanguinis. - Transitioned to PO on discharge. 2. Presyncope - Likely 2/2 UTI. - Carotid US showed no evidence of HD significant stenosis. 3. Afib - c/w Coreg and digoxin. - Coreg dose reduced from 12.5 BID to 6.25 BID due to bradycardia episodes. 4. CKD 5. Bradycaridia/pauses - Nocturnal vaishali? c/w telemetry. - Coreg dose reduced. Asymptomatic otherwise. - Likely will not require any intervention. - Will watch overnight. Plan for f/u with Cardio post discharge. DISPOSITION: Home. VS, I&O, 24H, [facility] Vital Signs/I&O Vital Signs Date Time Temp Pulse Resp B/P (MAP) Pulse Ox O2 Delivery O2 Flow Rate FiO2 10/28/18 18:00 97.6 69 20 135/70 (91) 98 10/25/18 21:45 Room Air I&O- Last 24 Hours up to 6 AM 10/28/18 06:00 Intake Total 2120 ml Balance 2120 ml Laboratory Data 24H LABS Laboratory Tests 2 10/28/18 05:39: Nucleated Red Blood Cells % (auto) 0.0, Prothrombin Time 23.4H, Prothromb Time International Ratio 2.04 CBC/BMP Laboratory Tests 10/28/18 05:39 Red Blood Count 3.44 L, Mean Corpuscular Volume 106.7 H, Mean Corpuscular Hemoglobin 34.6 H, Mean Corpuscular Hemoglobin Concent 32.4, Red Cell Distribution Width 13.1 Microbiology Microbiology 10/25/18 Urine Culture - Final, Complete Streptococcus Sanguinis JEAN-PIERRE SAL MD Oct 28, 2018 19:19
[2018-10-28] MEDS: ATORVASTATIN 10 MG TAB PO SCH (20:36)
[2018-10-28] MEDS: SENOKOT S TAB PO SCH (20:37)
[2018-10-29 02:00] VITALS: BP 140/80
[2018-10-29 06:00] VITALS: BP 132/62
[2018-10-29 07:00] LABS: INR 2.19; PROTHROMBIN TIME 24.8 SECONDS (12.1-14.4)
[2018-10-29 08:23] VITALS: BP 137/85
[2018-10-29] MEDS: MULTIVITAMINS/MINERALS THERAP 1 TAB PO SCH (08:23)
[2018-10-29] MEDS: CARVedilol 6.25 MG TAB PO SCH (08:23)
[2018-10-29] MEDS: DOCUSATE SODIUM 100 MG CAP PO SCH (08:24)
[2018-10-29] MEDS: DIGOXIN 0.125 MG TAB PO SCH (08:24)
[2018-10-29] MEDS: cefTRIAXone SOD 1 GM in D5W MINI-BAG PLUS 50 ML IV SCH (08:24)
[2018-10-29] MEDS ORDERED: CARV6.25 PO (13:29)
[2018-10-29] MEDS ORDERED: AMPI500C9 PO (13:30)
--- NOTE | 2018-10-29 15:44 | DS.PDOC ---
Discharge Summary General Date of Admission Oct 28, 2018 at 19:02 Date of Discharge 10/29/18 Discharge Summary PROCEDURES PERFORMED DURING STAY: [None]. ADMITTING DIAGNOSES: 1. UTI 2. Presyncope 3. Afib 4. HTN 5. CKD DISCHARGE DIAGNOSES: 1. UTI 2. Presyncope 3. Afib 4. HTN 5. CKD 6. Bradycardia COMPLICATIONS/CHIEF COMPLAINT: UTI. HISTORY OF PRESENT ILLNESS: "Patient is an 88-year-old female, presenting to the emergency room on account of dizziness and weakness for 2 days. Patient has a past medical history significant for hypertension, chronic atrial fibrillation, diastolic congestive heart failure, chronic kidney disease. Patient was lying in bed at onset of symptoms. Describes as waxing and waning usually lasting a few seconds. Afterwards usually feels clammy. She denied any chest pain or shortness of breath with symptoms. She denied any palpitations or any cardiac symptoms. Did report clamminess after each episode. On admit ED evaluation with Chest x-ray was negative for acute coronary pulmonary process, CT brain was negative for acute intracranial process. Chemistry was abnormal for BUN of 21. Urinalysis was abnormal for 3+ leukoesterase, elevated white blood count" HOSPITAL COURSE: Patient was treated for UTI with resolution of symptoms and reported feeling well. Course of hospitalization noted to have episodes of pauses and bradycardia but otherwise returns to 60-70s at baseline without symptoms. Discussed with her drafting instructor Dr. Peng and had agreed to lower her Coreg dose from 12.5 BID to 6.25 and have her follow up as outpatient, may do another Holter monitor then. Patient reported no complaints and requested to go home. Discharged patient to f/u with PMD and cardiology, to complete short course of PO abx for UTI. DISCHARGE MEDICATIONS: Please see below. ALLERGIES: Please see below. PHYSICAL EXAMINATION ON DISCHARGE: VITAL SIGNS: Please see below. General: No acute distress, Alert Eyes: Normal sclera, EOMI, KIM HENT: Atraumatic, neck supple, moist mucous membranes Cardiovascular: Normal rate, normal rhythm. No murmurs appreciated. Pulmonary: Clear to auscultation b/l, no wheezing GI: Soft, nontender, nondistended Skin: Warm and dry Neuro: CN grossly intact. No focal deficits. Strengths equal b/l. Psych: oriented x 3 LABORATORY DATA: Please see below. IMAGING: Head CT- IMPRESSION: Diffuse atrophy, vascular calcification, small vessel changes. No acute intracranial abnormality. ACTIVITY: [As tolerated]. DIET: Cardiac diet DISCHARGE PLAN: Complete course of Abx, 2 days of ampicillin f/u with PMD and Cardiology DISPOSITION: 01 Home, Self-Care. DISCHARGE INSTRUCTIONS: Complete course of Abx, 2 days of ampicillin f/u with PMD and Cardiology ITEMS TO FOLLOWUP ON ON OUTPATIENT: None DISCHARGE CONDITION: [Stable]. TIME SPENT ON DISCHARGE: 30 minutes. Vital Signs/I&Os Vital Signs Date Time Temp Pulse Resp B/P (MAP) Pulse Ox O2 Delivery O2 Flow Rate FiO2 10/29/18 08:24 80 10/29/18 08:23 137/85 10/29/18 06:00 97.3 17 97 10/25/18 21:45 Room Air I&O- Last 24 Hours up to 6 AM 10/29/18 06:00 Intake Total 1580 ml Balance 1580 ml Laboratory Data Labs 24H Laboratory Tests 2 10/29/18 06:04: Prothrombin Time 24.8H, Prothromb Time International Ratio 2.19 Microbiology Microbiology 10/25/18 Urine Culture - Final, Complete Streptococcus Sanguinis Discharge Medications Scheduled Ampicillin Trihydrate (Ampicillin Trihydrate) 500 Mg Capsule, 500 MG PO QID Atorvastatin Calcium (Lipitor) 10 Mg Tablet, 10 MG PO QHS, (Reported) Azelastine HCl (Azelastine HCl) 0.1% [place].pump, 2 SPRAY NARES BID, (Reported) Calcium Carbonate/Vitamin D3 (Calcium 600+D Softgel) 1 Each Capsule, 1 CAP PO BID, (Reported) Carvedilol (Carvedilol) 6.25 Mg Tablet, 6.25 MG PO BID Digoxin (Digoxin) 125 Mcg Tablet, 62.5 MCG PO DAILY, (Reported) Docusate Sodium (Stool Softener) 100 Mg Capsule, 100 MG PO BID, (Reported) Furosemide (Furosemide) 20 Mg Tablet, 20 MG PO 3XW, (Reported) TRIES TO TAKE M, W, F Multivitamin (Multivitamins) 1 Each Capsule, 1 CAP PO DAILY, (Reported) Sennosides (Senokot) 8.6 Mg Tablet, 8.6 MG PO QHS, (Reported) Warfarin Sodium (Warfarin Sodium) 3 Mg Tablet, 3 MG PO DAILY, (Reported) Allergies Coded Allergies: No Known Allergies (Verified , 07/06/17) JEAN-PIERRE SAL MD Oct 29, 2018 15:44
== END 2018-10-29 14:23 | disposition home or self-care (01) | DRG 690 ==
LOC: M ED 13:42 → M ED INP 20:28 → M MSPAV 22:04 → OBSVTOIN 10-28 19:02
PROVIDERS: ADMIT Hospitalist; ATTEND Student in an Organized Health Care Education/Training Program
DX: N39.0 Urinary tract infection, site not specified (principal); I50.32 Chronic diastolic (congestive) heart failure; I13.0 Hypertensive heart and chronic kidney disease with heart failure and stage 1 through stage 4 chronic kidney disease, or unspecified chronic kidney disease; R42 Dizziness and giddiness; I48.2 Chronic atrial fibrillation; N18.3 Chronic kidney disease, stage 3 (moderate); K21.9 Gastro-esophageal reflux disease without esophagitis; M48.02 Spinal stenosis, cervical region; B95.4 Other streptococcus as the cause of diseases classified elsewhere; R55 Syncope and collapse; R00.1 Bradycardia, unspecified; E78.5 Hyperlipidemia, unspecified; Z79.01 Long term (current) use of anticoagulants; Z79.899 Other long term (current) drug therapy; Z98.41 Cataract extraction status, right eye; Z98.42 Cataract extraction status, left eye

== ENCOUNTER → 2019-03-12 | Outpatient (REF) | payer MEDICARE ==
[~2019-03-12] MED LIST changes: +AMPI500C9 PO; +AZEL1SPR3 NARES; +CALC600C3 PO; +CARV12.5 PO; +CARV6.25 PO; +DIGO0.12 PO; +DOCU-129 PO; +FURO20TA2 PO; +KEFL500C17 PO; +LIPI10TA PO; +MECL1CHW PO; +MULTCAP PO; +SENO8.6T5 PO; +WARF-58 PO
[2019-03-12 15:46] LABS: HEMATOCRIT 39.7 % (36.0-47.0); HEMOGLOBIN 12.3 g/dl (12.0-15.5); MEAN CORPUSCULAR HEMOGLOBIN 33.7 pg (27.0-33.0); MEAN CORPUSCULAR VOLUME 108.8 fl (80.0-96.0); PLATELET COUNT, AUTOMATED 161 10^3/uL (150-450); RED BLOOD COUNT 3.65 10^6/uL (4.00-5.40); WHITE BLOOD COUNT 5.2 10^3/uL (4.0-10.0)
[2019-03-12 15:59] LABS: ALBUMIN 4.1 GM/DL (3.2-5.2); BILIRUBIN,TOTAL 0.8 MG/DL (0.2-1.0); CHOLESTEROL RISK RATIO 2.107 (<5); CREATININE FOR GFR 1.03 MG/DL (0.55-1.30); GLOMERULAR FILTRATION RATE 53.7 (>32); POTASSIUM SERUM 4.7 MEQ/L (3.5-5.1); THYROID STIMULATING HORMONE 1.53 uIU/ML (0.358-3.740); TOTAL 25(OH) VITAMIN D 49.2 NG/ML (30.0-100.0)
== END ==
LOC: M SFHCPLAZ 13:50
PROVIDERS: ATTEND Nurse Practitioner Adult Health
DX: I48.20 Chronic atrial fibrillation, unspecified (principal); E78.2 Mixed hyperlipidemia; E55.9 Vitamin D deficiency, unspecified; Z23 Encounter for immunization
CPT/HCPCS: 36415; 80053; 80061; 82306; 84443; 85027; 90472; 90682; G0008

== ENCOUNTER → 2019-03-25 | Outpatient (CLI) | payer MEDICARE ==
--- NOTE | 2019-03-25 16:55 | REP ---
CT IACs / temporal bones: 03/25/2019. Indication: Hearing loss. Comparison: None. Technique: Unenhanced axial images of the IACs / temporal bones were performed with coronal reconstructions provided. Findings: There is no evidence of temporal bone fracture. No abnormal soft tissue is present within the middle ear cavities. The ossicles are unremarkable. The inner ear anatomy is unremarkable. The IACs and cerebellopontine/medullary angles are also unremarkable. There is no evidence of carotid artery aberrancy. There is no mastoid effusion. The visualized paranasal sinuses are clear. The nasopharynx soft tissue is unremarkable. Impression: Unremarkable IACs / temporal bones. Electronically Signed by Last Sheikh DO 03/25/2019 04:46 P
== END ==
LOC: M RAD 15:33
PROVIDERS: ATTEND Otolaryngology
DX: H90.A31 Mixed conductive and sensorineural hearing loss, unilateral, right ear with restricted hearing on the contralateral side (principal)

== ENCOUNTER → 2019-07-21 | Outpatient (REF) | payer MEDICARE ==
[~2019-07-21] MED LIST changes: -DIGO0.12 PO; +DIGO0.123 PO
== END ==
LOC: M SFHCPLAZ 16:52
PROVIDERS: ATTEND Nurse Practitioner Adult Health
DX: R35.0 Frequency of micturition (principal)
CPT/HCPCS: 81002; 87086; G0463